=== PATIENT | male | born 1970 | race Caucasian/White ===

== ENCOUNTER 2017-06-18 09:31 | Emergency (ER) | payer MEDICAID ==
[~2017-06-18] VITALS: Ht 177.8 cm; Wt 70.4 kg
[2017-06-18] MEDS ORDERED: ondansetron/PF 4mg/2ml inj IV ONE (11:15)
[2017-06-18] MEDS ORDERED: HYDROcodone/acetaminophen 5mg/325mg tablet PO ONE (11:15)
[2017-06-18] MEDS ORDERED: HYDR30CR79 TOP (12:14)
[2017-06-18] MEDS ORDERED: POLY17PO10 PO (12:14)
[2017-06-18] MEDS ORDERED: HYDR25SU32 RC (12:14)
[2017-06-18 12:37] VITALS: BP 137/78
== END 2017-06-18 12:40 | disposition home or self-care (01) ==
LOC: ER 09:33
DX: K62.89 Other specified diseases of anus and rectum (principal)
CPT/HCPCS: 96374; 99284; J2405; J2270

== ENCOUNTER 2019-04-26 14:52 | Emergency (ER) | payer MEDICAID, OTHER ==
[~2019-04-26] VITALS: Ht 177.8 cm; Wt 68.0 kg
[~2019-04-26 14:52] MED LIST: HYDR25SU32 RC; HYDR30CR79 TOP
[2019-04-26 15:46] VITALS: BP 133/92
== END 2019-04-26 15:55 | disposition home or self-care (01) ==
LOC: ER 14:53
DX: Z04.1 Encounter for examination and observation following transport accident (principal); F12.90 Cannabis use, unspecified, uncomplicated; F10.99 Alcohol use, unspecified with unspecified alcohol-induced disorder; Z59.0 Homelessness; Z79.899 Other long term (current) drug therapy; V87.7XXA Person injured in collision between other specified motor vehicles (traffic), initial encounter; Y93.89 Activity, other specified; Y92.488 Other paved roadways as the place of occurrence of the external cause; Y99.8 Other external cause status; Y90.9 Presence of alcohol in blood, level not specified
CPT/HCPCS: 93005; 99283

== ENCOUNTER 2024-02-17 10:15 | Emergency (ER) | payer MEDICAID, OTHER ==
[~2024-02-17] VITALS: Ht 177.8 cm; Wt 72.7 kg
[2024-02-17 10:29] VITALS: BP 135/94; PULSE 107; RESP 16; TEMP 98.8; O2SAT 97
== END 2024-02-17 12:23 | disposition home or self-care (01) ==
LOC: ER 10:16
DX: S40.011A Contusion of right shoulder, initial encounter (principal); F12.90 Cannabis use, unspecified, uncomplicated; Z79.52 Long term (current) use of systemic steroids; Z59.00 Homelessness unspecified; X58.XXXA Exposure to other specified factors, initial encounter; Y93.89 Activity, other specified; Y92.89 Other specified places as the place of occurrence of the external cause; Y99.8 Other external cause status
CPT/HCPCS: 73030; 99283

== ENCOUNTER 2024-08-16 09:38 | Inpatient (IN) | payer MEDICAID ==
[~2024-08-16] VITALS: Ht 177.8 cm; Wt 70.5 kg
[2024-08-16 10:40] LABS: BILIRUBIN,URINE NEGATIVE (Neg); CLARITY,URINE CLEAR (Clear); COLOR,URINE YELLOW (Yellow); GLUCOSE, URINE NEGATIVE (Neg); KETONES,URINE NEGATIVE (Neg); LEUKOCYTE ESTERASE ,URINE NEGATIVE (Neg); NITRITES, URINE NEGATIVE (Neg); OCCULT BLOOD,URINE TRACE-INTACT (Neg); PH,URINE 5.5 (4.8-8.0); PROTEIN,URINE TRACE mg/dl (Neg); UROBILINOGEN,URINE 0.2 E.U/dL (0.2-1.0)
[2024-08-16 10:43] LABS: UA COLLECTION TYPE CLN CATCH MIDSTREAM
[2024-08-16 10:53] LABS: BACTERIA,URINE 1+ /HPF (Neg); SQUAMOUS EPITHELIAL CELL,UR FEW /LPF (FEW); WBC,URINE 0-4 /HPF (0-4)
[2024-08-16 11:03] LABS: URINE AMPHETAMINE SCREEN NEGATIVE (Neg); URINE BARBITUATE SCREEN NEGATIVE (Neg); URINE BENZODIAZEPINES SCREEN NEGATIVE (Neg); URINE CANNABINOID SCREEN POSITIVE (Neg); URINE COCAINE SCREEN NEGATIVE (Neg); URINE METHADONE SCREEN NEGATIVE (Neg); URINE OPIATE SCREEN NEGATIVE (Neg); URINE PHENCYCLIDINE SCREEN NEGATIVE (Neg)
[2024-08-16 11:18] LABS: BASOPHILS # (AUTO) 0.1 X10'3 (0-0.2); BASOPHILS % (AUTO) 0.7 % (0-1); EOSINOPHILS # (AUTO) 0.2 X10'3 (0-0.9); EOSINOPHILS % (AUTO) 2.9 % (0-6); HEMATOCRIT 47.7 % (42.0-52.0); HEMOGLOBIN 16.4 g/dl (14.0-17.9); LYMPHOCYTES # (AUTO) 1.9 X10'3 (1.1-4.8); MEAN CORPUSCULAR HEMOGLOBIN 31.8 PG (27.0-31.0); MEAN CORPUSCULAR HGB CONC 34.4 g/dL (33.0-36.5); MEAN CORPUSCULAR VOLUME 92.3 FL (78-98); MONOCYTES # (AUTO) 0.7 X10'3 (0-0.9); MONOCYTES % (AUTO) 8.8 % (2-12); NEUTROPHILS # (AUTO) 5.1 X10'3 (1.8-7.7); NEUTROPHILS % (AUTO) 63.6 % (42-75); PLATELET COUNT 286 X10'3 (140-440); RED BLOOD COUNT 5.17 X10'6 (4.70-6.10); RED CELL DISTRIBUTION WIDTH 13.4 % (11.5-14.5); WHITE BLOOD COUNT 8.1 X10'3 (4.5-11.0)
[2024-08-16 11:42] LABS: ALBUMIN 4.2 G/DL (3.4-5.0); ANION GAP 5 (8-16); BLOOD UREA NITROGEN 14 MG/DL (7-18); BUN/CREATININE RATIO 18.4 (10.0-20.0); CALCIUM 9.2 MG/DL (8.5-10.1); CHLORIDE 103 MMOL/L (99-107); CREATININE 0.76 MG/DL (0.60-1.10); ETHANOL < 10 MG/DL (<10); GLUCOSE 96 MG/DL (70-104); POTASSIUM 4.1 MMOL/L (3.5-5.1); SODIUM 140 MMOL/L (135-145); THYROID STIMULATING HORMONE 0.57 ulU/ml (0.34-4.50); eCRCL 117 ML/MIN; eGFR > 90 ML/MIN
[2024-08-16] MEDS: LORazepam 1 MG tablet PO ONE (15:36)
[2024-08-16 19:00] VITALS: BP 121/85; PULSE 64; RESP 14; RESP 16; TEMP 97.7; O2SAT 99
[2024-08-16] MEDS ORDERED: chlorproMAZINE 25mg tablet PO PRN ×2 (20:20→21:20)
[2024-08-16] MEDS ORDERED: mag hydrox/Alum hydrox/simeth 30ml oral suspension PO PRN (20:20)
[2024-08-16] MEDS ORDERED: magnesium hydroxide 30ml (MOM) UD suspension PO PRN (20:20)
[2024-08-16] MEDS ORDERED: loperamide 2mg capsule PO PRN (20:20)
[2024-08-16] MEDS ORDERED: acetaminophen 325mg tablet PO PRN ×2 (20:20)
[2024-08-16] MEDS ORDERED: diphenhydrAMINE 25mg capsule PO PRN (21:20)
[2024-08-16] MEDS ORDERED: ondansetron 4mg rapidly disintigrating tab PO PRN (21:20)
[2024-08-16] MEDS: traZODone 50mg tablet PO ONE (22:00)
[2024-08-16] MEDS: hydrOXYzine 25 MG tablet PO PRN (23:10)
[2024-08-16] MEDS: traZODone 50mg tablet PO PRN (23:10)
[2024-08-17] MEDS ORDERED: NO HOME MEDS (02:52)
[2024-08-17 07:21] VITALS: BP 114/78; PULSE 71; RESP 12; TEMP 98.2
[2024-08-17 08:00] VITALS: RESP 12; O2SAT 97
[2024-08-17 08:16] LABS: HEMOGLOBIN A1C 5.6 % (4.5-6.2)
[2024-08-17 08:24] LABS: CHOLESTEROL 162 MG/DL (0-200); HDL CHOLESTEROL 41 MG/DL (35-60); LDL CHOLESTEROL 104 MG/DL (50-100); TRIGLYCERIDES 109 MG/DL (20-135)
[2024-08-17 19:00] VITALS: RESP 15; O2SAT 99
[2024-08-17 19:14] VITALS: BP 114/79; PULSE 72; RESP 15; TEMP 98.4; O2SAT 99
[2024-08-17] MEDS: mirtazapine 15mg tablet PO SCH (20:45)
[2024-08-17] MEDS: gabapentin 400mg capsule PO SCH (20:45)
[2024-08-18 06:11] LABS: HBSAG SCREEN Negative (Negative); HEP B CORE AB, IGM Negative (Negative); HEP B CORE AB, TOT Negative (Negative); HEP B SURF AB Reactive (.)
[2024-08-18 07:30] VITALS: BP 114/84; PULSE 110; RESP 18; TEMP 98; O2SAT 98
[2024-08-18 08:00] VITALS: RESP 18; O2SAT 98
[2024-08-18 19:08] VITALS: RESP 18; O2SAT 98
[2024-08-18] MEDS: traZODone 50mg tablet PO PRN (20:13)
[2024-08-18 20:16] VITALS: BP 140/96; PULSE 85; RESP 17; TEMP 98.4; O2SAT 98
[2024-08-19 07:00] VITALS: BP 123/86; PULSE 86; RESP 16; TEMP 98.3; O2SAT 97
[2024-08-19] MEDS ORDERED: HYDR-3686 PO (17:07)
[2024-08-19] MEDS ORDERED: MIRT-87 PO (17:07)
[2024-08-19] MEDS ORDERED: TRAZ-251 PO (17:07)
[2024-08-19] MEDS ORDERED: GABA-535 PO (17:07)
[2024-08-19 19:00] VITALS: BP 132/85; PULSE 91; RESP 18; TEMP 98.5; O2SAT 99
== END 2024-08-19 19:58 | disposition home or self-care (01) | DRG 751 ==
LOC: ER 09:38 → ADULT MH 17:00
PROVIDERS: ADMIT Psychiatry & Neurology Psychiatry; ATTEND Psychiatry & Neurology Psychiatry
PROC: GZHZZZZ Group Psychotherapy (ICD-10-PCS; principal; 2024-08-17)
DX: F33.2 Major depressive disorder, recurrent severe without psychotic features (principal); R45.851 Suicidal ideations; Z59.00 Homelessness unspecified; Z20.822 Contact with and (suspected) exposure to COVID-19; F43.10 Post-traumatic stress disorder, unspecified; F12.90 Cannabis use, unspecified, uncomplicated; Z81.8 Family history of other mental and behavioral disorders; F41.9 Anxiety disorder, unspecified; Z79.899 Other long term (current) drug therapy
CPT/HCPCS: 36415; 80048; 80061; 80305; 80320; 81001; 83036; 84443; 85025; 86704; 86705; 86706; 87081; 87340; 87811; 99285; Q0177